=== PATIENT | female | born 1995 | race Caucasian/White ===

== ENCOUNTER 2017-05-11 12:11 | Emergency (ER) | payer OTHER ==
[~2017-05-11] VITALS: Ht 165.1 cm; Wt 65.8 kg
[2017-05-11 12:14] VITALS: BP 112/67
--- NOTE | 2017-05-11 12:35 | ED GI/GU/ABDOMINAL COMPLAINT ---
History of Present Illness General Chief Complaint: General Adult Stated Complaint: ABD PAIN, LOW BACK PAIN, CP Source: patient, old records Exam Limitations: no limitations Vital Signs & Intake/Output Vital Signs & Intake/Output Vital Signs Date Time Temp Pulse Resp B/P B/P Pulse O2 O2 Flow FiO2 Mean Ox Delivery Rate 05/11 1214 97.6 86 16 112/67 100 Room Air Allergies Coded Allergies: amoxicillin (Severe, HIVES 05/11/17) Reconcile Medications Ibuprofen 600 MG TABLET 1 TAB PO TID PRN PAIN with food Ondansetron (Zofran Odt) 4 MG TAB.RAPDIS 1 TAB SL TID PRN NAUSEA Triage Note: PT STATES FOR THE PAST 4 DAYS SHE HAS BEEN HAVING STOMACH LOW BACK AND CHEST PAIN. PT DENIES SOB DENIES TAKING BC PILLS. Triage Nurses Notes Reviewed? yes ? N Is pt currently ? No HPI: Patient presents with left lower quadrant crampy abdominal pain as well as nausea vomiting. The symptoms have been going on for the past 4 days. The pain is constant. She rates the pain at 6 out of 10. No aggravating or mitigating factors. Patient denies any dysuria. There is no hematuria. There is no radiation of the pain. Past History Travel History Traveled to [place] past 21 day No Medical History Any Pertinent Medical History? see below for history Renal: UTI Surgical History Surgical History: non-contributory Psychosocial History What is your primary language Danish Tobacco Use: Current Daily Use Daily Tobacco Use Amount/Type: => 5 Cigarettes daily ETOH Use: denies use Illicit Drug Use: denies illicit drug use Family History Hx Contributory? No Review of Systems Review of Systems Constitutional: Reports: no symptoms. EENTM: Reports: no symptoms. Respiratory: Reports: no symptoms. Cardiovascular: Reports: no symptoms. GI: Reports: see HPI, abdominal pain. Genitourinary: Reports: no symptoms. Musculoskeletal: Reports: see HPI, back pain. Skin: Reports: no symptoms. Neurological/Psychological: Reports: no symptoms. Hematologic/Endocrine: Reports: no symptoms. Immunologic/Allergic: Reports: no symptoms. All Other Systems: Reviewed and Negative Physical Exam Physical Exam General Appearance: well developed/nourished, alert, awake Head: atraumatic, normal appearance Eyes: Bilateral: PERRL, EOMI. Ears, Nose, Throat, Mouth: hearing grossly normal, moist mucous membrane Neck: normal inspection, supple, full range of motion Respiratory: normal breath sounds, chest non-tender, no respiratory distress, lungs clear Cardiovascular: regular rate/rhythm, normal peripheral pulses Gastrointestinal: normal bowel sounds, soft, no organomegaly, tenderness (LLQ), NO REBOUND OR GUARDING Back: normal inspection, normal range of motion, NO CVA TENDERNESS Extremities: normal range of motion Neurologic/Psych: no motor/sensory deficits, awake, alert, oriented x 3, normal gait, normal mood/affect Skin: intact, normal color, warm/dry Core Measures ACS in differential dx? No Severe Sepsis Present: No Septic Shock Present: No Progress Differential Diagnosis: appendicitis, diverticulitis, ectopic , gastritis, hepatitis, ischemic bowel, inflamm bowel dis, intrauterine , ovarian cyst, ovarian torsion, pancreatitis, peptic ulcer, PUD/GERD, UTI/pyelo Plan of Care: Orders Procedure Date/time Status LIPASE 05/11 1235 Complete COMPREHENSIVE METABOLIC PANEL 05/11 1235 Complete CBC WITHOUT DIFFERENTIAL 05/11 1235 Complete AMYLASE 05/11 1235 Complete URINE 05/11 1225 Complete URINALYSIS 05/11 1225 Complete EKG 05/11 1211 Active Current Medications Sig/Yesenia Start time Last Medication Dose Stop Time Status Admin Ketorolac 30 MG ONCE ONE 05/11 1245 CAN Tromethamine 05/11 1246 (Toradol) Ondansetron HCl 4 MG ONCE ONE 05/11 1245 CAN (Zofran) 05/11 1246 Sodium Chloride 1,000 ML BOLUS ONE 05/11 1245 CAN (Normal Saline 0.9%) 05/11 1344 Laboratory Tests 05/11/17 1304: Anion Gap 10, Estimated GFR > 60, BUN/Creatinine Ratio 18.8, Glucose 80, Calcium 9.8, Total Bilirubin 0.7, AST 18, ALT 39, Alkaline Phosphatase 37, Total Protein 7.3, Albumin 4.7, Globulin 2.6, Albumin/Globulin Ratio 1.8, Amylase 43, Lipase 54, CBC w Diff NO MAN DIFF REQ, RBC 4.21, MCV 92.4, MCH 30.7, RDW 12.8, MPV 9.4, Gran % 63.2, Lymphocytes % 31.4, Monocytes % 5.0, Eosinophils % 0.3, Basophils % 0.1, Absolute Granulocytes 4.8, Absolute Lymphocytes 2.4, Absolute Monocytes 0.4 , Absolute Eosinophils 0, Absolute Basophils 0, PUBS MCHC 33.3 05/11/17 1230: Urine Color YEL, Urine Clarity HAZY H, Urine pH 8.0, Ur Specific [place] 1.015, Urine Protein NEG, Urine Ketones NEG, Urine Nitrite NEG, Urine Bilirubin NEG, Urine Urobilinogen 0.2, Ur Leukocyte Esterase TRACE H, Ur Microscopic SEDIMENT EXAMINED, Urine RBC 5-10 H, Urine WBC 1-3 H, Ur Epithelial Cells PACKD H, Urine Bacteria MANY H, Urine Mucus RARE, Urine Hemoglobin MOD H, Urine Glucose NEG, Urine Test NEGATIVE Initial ED EKG: none Comments: ON RE-EXAM: STILL NO RLQ TENDERNESS Departure Departure Disposition: HOME OR SELF CARE Condition: Stable Clinical Impression Primary Impression: Lower abdominal pain, unspecified Referrals: LUBA JOSÉ,JU BEAVERS (PCP/Family) Additional Instructions: RETURN IF SYMPTOMS WORSNE OR FOR ANY CONCERNS Departure Forms: Customer Survey General Discharge Information Prescriptions: Current Visit Scripts Ibuprofen 1 TAB PO TID PRN PAIN #20 TAB with food Ondansetron (Zofran Odt) 1 TAB SL TID PRN NAUSEA #10 TAB
[2017-05-11 13:14] LABS: ABSOLUTE BASOPHIL COUNT 0 /CUMM (0.0-0.2); ABSOLUTE EOSINOPHIL COUNT 0 /CUMM (0.0-0.7); ABSOLUTE GRANULOCYTE CT 4.8 /CUMM (1.4-6.5); ABSOLUTE LYMPH COUNT 2.4 /CUMM (1.2-3.4); ABSOLUTE MONOCYTE COUNT 0.4 /CUMM (0.10-0.60); BASOPHIL % 0.1 % (0.0-2.0); EOSINOPHIL % 0.3 % (0-5); GRANULOCYTE % 63.2 % (42.2-75.2); HEMATOCRIT 38.9 % (37-47); MEAN CORPUSCULAR HGB 30.7 PG (27.0-31.0); MEAN CORPUSCULAR HGB CONC 33.3 G/DL (33.0-37.0); MEAN CORPUSCULAR VOLUME 92.4 FL (81.0-99.0); MEAN PLATELET VOLUME 9.4 FL (7.4-10.4); PLATELET COUNT 236 /CUMM (130-400); RBC DISTRIBUTION WIDTH 12.8 % (11.5-14.5); RED BLOOD CELL CT 4.21 /CUMM (4.20-5.40); WHITE BLOOD CELL COUNT 7.6 /CUMM (4.8-10.8)
[2017-05-11] MEDS ORDERED: IBUPROFEN600 M1 PO (13:59)
[2017-05-11] MEDS ORDERED: ZOFRAN ODT4 M1 SL (13:59)
== END 2017-05-11 14:14 ==
LOC: ERH 12:11
PROVIDERS: Emergency Medicine
DX: R10.32 Left lower quadrant pain (principal)
CPT/HCPCS: 81001; 81025; 93005; 93010